=== PATIENT | male | born 1960 | race Caucasian/White ===

== ENCOUNTER → 2016-08-23 | Outpatient (CLI) | payer BC ==
[~2016-08-23] MED LIST: NAPR500T3 PO
--- NOTE | 2016-08-23 16:04 | Diagnostic Imaging Report ---
INDICATION: Numbness in right arm x 1 month. No known injury.. TECHNIQUE: AP, lateral, and odontoid views of the cervical spine were performed. CORRELATION STUDY: None. FINDINGS: There is reversal of the cervical lordosis at C3. There is mild retrolisthesis of C3 on C4, C4 on C5, and C5 on C6. The cervical vertebral body heights are maintained. Moderate disc space narrowing is seen at C3-C4, C4-C5, C5-C6, C6-C7, and likely the C7-T1 levels. Mildly prominent endplate osteophytes, particularly posteriorly at the inferior C3, C4, and C5 levels, may predispose to potential foraminal and/or canal narrowing. The odontoid appears to be relatively unremarkable but is somewhat obscured. The lateral masses of C1 and C2 are aligned. Scattered mild facet arthropathy is present. The prevertebral soft tissues are unremarkable. Calcification of the soft tissues posteriorly is likely along the posterior ligamentum nuchae. IMPRESSION: Advanced multilevel cervical spondylosis. Straightening with reversal of the normal cervical lordosis. Endplate osteophytes may predispose potential for foraminal and/or canal narrowing. Dictated by: Dictated on workstation # [id number]
== END ==
LOC: RAD 11:46
PROVIDERS: ATTEND Nurse Practitioner Family
DX: M47.812 Spondylosis without myelopathy or radiculopathy, cervical region (principal)
CPT/HCPCS: 72040

== ENCOUNTER → 2016-10-09 | Outpatient (CLI) | payer BC ==
--- NOTE | 2016-10-09 10:44 | Diagnostic Imaging Report ---
PROCEDURE: MR imaging cervical spine without contrast. TECHNIQUE: Multiplanar, multisequence MR imaging of the cervical spine was performed without contrast. INDICATION: Neck pain and right arm numbness. FINDINGS: There is straightening of the upper cervical spine curvature. The alignment of the posterior spinal line is satisfactory. The vertebral body heights are preserved. There is disc desiccation at all levels. No significant disc height loss is seen. The spinal cord has normal caliber, contour and signal. There is no significant marrow signal abnormality. The foramen magnum and the upper cervical canal are widely patent. C2/C3: No disc herniation, no spinal canal or foraminal stenosis. C3/4: There is moderate spinal canal stenosis from a disc spur complex producing the AP dimension of the canal to 8.5 mm. No cord compression. There is facet and uncovertebral joint arthropathy resulting in bilateral moderate to severe foraminal stenosis. C4/5: There is a disc spur complex associated with moderate spinal canal stenosis reducing the AP dimension of the canal to 7.5 mm with no cord compression. The foramina demonstrate moderate to severe narrowing on the left and moderate narrowing on the right side. C5/6: There is a spur disc complex and posterior ligamentous hypertrophy resulting in severe spinal canal stenosis and reducing the AP dimension of the canal to 6.9 mm. There is a minimal compression on the spinal cord with no cord signal abnormality. The foramina demonstrate bilateral moderate to severe stenosis. C6-7: There is a disc spur complex associated with mild spinal canal stenosis reducing the AP dimension of the canal to 9 mm with slightly more prominent component of the disc along the right side of the spinal canal. No cord compression. There is bilateral foraminal stenosis severe on the right and moderate on the left. C7/T1: No disc herniation or spinal canal stenosis. There is mild foraminal stenosis bilaterally. IMPRESSION: Disc, facet and uncovertebral joint hypertrophy resulting in multilevel spinal canal and foraminal stenosis. Dictated by: Dictated on workstation # [id number]
== END ==
LOC: RAD 08:07
PROVIDERS: ATTEND Nurse Practitioner Family
DX: M54.12 Radiculopathy, cervical region (principal); M48.02 Spinal stenosis, cervical region
CPT/HCPCS: 72141

== ENCOUNTER 2016-11-14 05:51 | Outpatient (CLI) | payer BC ==
[~2016-11-14] VITALS: Ht 177.8 cm; Wt 127.0 kg
== END 2016-11-14 14:50 ==
LOC: PREOP 05:51
PROVIDERS: ATTEND Surgery
DX: Z01.818 Encounter for other preprocedural examination (principal); K21.9 Gastro-esophageal reflux disease without esophagitis; K92.1 Melena

== ENCOUNTER → 2017-06-27 | Outpatient (CLI) | payer BC ==
[~2017-06-27] MED LIST changes: +NAPR-915 PO; -NAPR500T3 PO
--- NOTE | 2017-06-27 14:33 | Diagnostic Imaging Report ---
INDICATION: Dyspnea. TIME OF EXAM: 02:09 p.m. Correlation is made with prior study from 04/09/2016. FINDINGS: There is a zone of linear parenchymal density in the right base consistent with subsegmental atelectasis. No infiltrates are identified. There is no effusion. Minimal linear scarring or atelectasis in the left base is also noted. No pneumothorax is seen. IMPRESSION: Bibasilar subsegmental atelectasis, right greater. No other significant abnormality is seen. Dictated by: Dictated on workstation # [id number]
== END ==
LOC: RAD 13:38
PROVIDERS: ATTEND Nurse Practitioner Family
DX: J98.11 Atelectasis (principal)
CPT/HCPCS: 71046

== ENCOUNTER → 2017-07-18 | Outpatient (CLI) | payer BC ==
--- NOTE | 2017-07-18 10:03 | Diagnostic Imaging Report ---
INDICATION: Low back pain Vertebral body height and alignment appear normal. There is some spondylosis with osteophyte formation at L3-4 and L4-5. There is no compression fracture or misalignment. 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 No acute abnormality seen. Dictated by: Dictated on workstation # [id number]
== END ==
LOC: RAD 08:40
PROVIDERS: ATTEND Family Medicine
DX: M47.816 Spondylosis without myelopathy or radiculopathy, lumbar region (principal)
CPT/HCPCS: 72100

== ENCOUNTER → 2017-08-01 | Outpatient (CLI) | payer BC, OTHER ==
--- NOTE | 2017-08-01 16:18 | Diagnostic Imaging Report ---
PROCEDURE: MRI lumbar spine. TECHNIQUE: Multiplanar, multisequence MRI of the lumbar spine was performed without contrast. INDICATION: Lower back pain. COMPARISON: None. FINDINGS: For the purposes of this exam, last well-formed disc space is denoted the L5-S1 level. Static alignment is maintained. There is no significant anterolisthesis or retrolisthesis. There is no evidence of jumped facets. Vertebral body heights are maintained. There is no evidence of acute fracture. Marrow signal is normal throughout. Intervertebral disc heights are fairly well maintained, although there is mild loss of normal fluid-type bright signal with probable posterior annular tears at the L4-L5 and L5-S1 levels. Visualized portions of the distal cord are unremarkable. Conus terminates at approximately the T12-L1 level. No abnormal intrathecal filling defects are seen. Pre and paravertebral soft tissue structures are unremarkable. Axial images demonstrate the following: T12-L1 and L1-L2: There is no large disc bulge or focal protrusion. There is no significant spinal canal or neuroforaminal stenosis. L2-L3: There is slight broad-based posterior disc bulge. This results in minimal effacement of the anterior thecal sac and minimal narrowing of bilateral neuroforamen. L3-L4: There is slight broad-based posterior disc bulge. This results in minimal effacement of the anterior thecal sac and minimal narrowing of bilateral neuroforamen. L4-L5: There is slight broad-based posterior disc bulge and bilateral facet arthropathy. This results in minimal narrowing of the bilateral neuroforamen. Spinal canal is also minimally effaced. L5-S1: There is bilateral facet arthropathy. There is no large disc bulge or focal protrusion. There is no significant spinal canal or neuroforaminal stenosis. IMPRESSION: 1. Mild multilevel degenerative changes of lumbar spine as described above. There is, however, no significant spinal canal or neuroforaminal stenosis. 2. No acute fracture or dislocation of the lumbar spine. Dictated by: Dictated on workstation # [id number]
== END ==
LOC: RAD 15:04
PROVIDERS: ATTEND Nurse Practitioner Family
DX: M46.87 Other specified inflammatory spondylopathies, lumbosacral region (principal); M47.816 Spondylosis without myelopathy or radiculopathy, lumbar region
CPT/HCPCS: 72148